=== PATIENT | male | born 1955 | race Caucasian/White ===

== ENCOUNTER 2016-11-02 03:11 | Emergency (ER) | payer MEDICARE ==
[~2016-11-02] VITALS: Ht 177.8 cm; Wt 100.0 kg
[2016-11-02 04:03] LABS: BLOOD UREA NITROGEN 19 mg/dL (7-18)
[2016-11-02 04:07] LABS: ASPARTATE AMINO TRANSFERASE 14 U/L (15-37)
[2016-11-02] MEDS ORDERED: LISINOPRIL (04:39)
[2016-11-02] MEDS ORDERED: ASPI-515 PO (04:40)
[2016-11-02] MEDS ORDERED: LOPERAMIDE 2 MG CAPSULE ONE (05:16)
[2016-11-02 05:29] VITALS: BP 134/71
[2016-11-02] MEDS ORDERED: DIPHENOXYLATE/ATROPINE TABLET PO ONE (05:30)
== END 2016-11-02 06:25 | disposition home or self-care (01) ==
LOC: ED 06:19
DX: R19.7 Diarrhea, unspecified (principal); I10 Essential (primary) hypertension; E78.5 Hyperlipidemia, unspecified; Z99.3 Dependence on wheelchair; Z86.73 Personal history of transient ischemic attack (TIA), and cerebral infarction without residual deficits
CPT/HCPCS: 36415; 74020; 80053; 83690; 85025; 87324; 89055; 99285

== ENCOUNTER 2016-12-08 12:19 | Emergency (ER) | payer OTHER ==
[~2016-12-08] VITALS: Ht 180.3 cm; Wt 100.0 kg
[~2016-12-08 12:19] MED LIST: ASPI-515 PO; LISINOPRIL
[2016-12-08 12:35] VITALS: BP 130/68
[2016-12-08] MEDS ORDERED: LISI-167 PO (12:37)
[2016-12-08] MEDS ORDERED: DIPH1TAB6 PO (12:37)
[2016-12-08] MEDS ORDERED: PLEASE ENTER HEIGHT AND WEIGHT MC SCH (13:00)
[2016-12-08] MEDS ORDERED: SODIUM CHLORIDE FLUSH 10ML SYR IVF ONE (13:00)
[2016-12-08] MEDS ORDERED: SODIUM CHLORIDE 0.9% 1,000ML IVBOLUS ONE (13:00)
[2016-12-08 13:23] LABS: BLOOD UREA NITROGEN 18 mg/dL (7-18)
[2016-12-08 13:27] LABS: ASPARTATE AMINO TRANSFERASE 16 U/L (15-37)
[2016-12-08] MEDS ORDERED: MAGN400T26 PO (14:07)
[2016-12-08] MEDS ORDERED: WARF5TAB7 PO (14:07)
[2016-12-08] MEDS ORDERED: LEVO125T5 PO (14:07)
[2016-12-08] MEDS ORDERED: WARF2.5T73 PO (14:07)
[2016-12-08] MEDS ORDERED: OMEP-110 PO (14:07)
[2016-12-08] MEDS ORDERED: METO25TA35 PO (14:07)
[2016-12-08] MEDS ORDERED: SPIR25TA3 PO (14:07)
[2016-12-08] MEDS ORDERED: PRAV20TA2 PO (14:07)
[2016-12-08] MEDS ORDERED: CIPROFLOXACIN 500 MG TABLET PO ONE (14:30)
[2016-12-08] MEDS ORDERED: metroNIDAZOLE 500 MG TABLET PO ONE (14:30)
[2016-12-08] MEDS ORDERED: metroNIDAZOLE 500 MG TABLET ONE (14:35)
[2016-12-08] MEDS ORDERED: CIPROFLOXACIN 500 MG TABLET ONE (14:35)
== END 2016-12-08 15:01 | disposition home or self-care (01) ==
LOC: ED 13:00
DX: R19.7 Diarrhea, unspecified (principal); E78.5 Hyperlipidemia, unspecified; I10 Essential (primary) hypertension; Z99.3 Dependence on wheelchair
CPT/HCPCS: 36415; 80053; 83690; 85025; 87046; 87324; 87899; 89055; 96360; 96361; 99285; J7030

== ENCOUNTER 2018-08-10 05:16 | Day surgery (SDC) | payer MEDICARE ==
[~2018-08-10] VITALS: Ht 180.3 cm; Wt 132.1 kg
[~2018-08-10 05:16] MED LIST changes: +DIPH1TAB6 PO; +LEVO125T5 PO; +LISI-167 PO; +MAGN400T26 PO; +METO25TA35 PO; +OMEP-110 PO; +PRAV20TA2 PO; +SPIR25TA5 PO; +WARF-36 PO; +WARF2.5T32 PO
[2018-08-10] MEDS ORDERED: LACTATED RINGERS 1,000 ML IV SCH (06:02)
[2018-08-10] MEDS ORDERED: BUPIVACAINE/PF 0.5% ONE (06:08)
[2018-08-10] MEDS ORDERED: LIDOCAINE 1%, 20ML ONE (06:08)
[2018-08-10] MEDS ORDERED: FENTANYL PF 250 MCG/5ML ONE (06:39)
[2018-08-10] MEDS ORDERED: MIDAZOLAM 1 MG/ML, 2ML ONE (06:39)
[2018-08-10] MEDS ORDERED: GLIP10TA13 PO (06:42)
[2018-08-10] MEDS ORDERED: LEVE500T53 PO (06:42)
[2018-08-10] MEDS ORDERED: TAMS-11 PO (06:42)
[2018-08-10] MEDS ORDERED: ATOR20TA37 PO (06:42)
[2018-08-10] MEDS ORDERED: DOXY100T10 PO (06:42)
[2018-08-10] MEDS ORDERED: CLOP75TA52 PO (06:42)
[2018-08-10] MEDS ORDERED: ATEN25TA PO (06:42)
[2018-08-10] MEDS ORDERED: LISI-170 PO (06:42)
[2018-08-10 06:49] VITALS: BP 128/63
[2018-08-10 06:51] LABS: ALANINE AMINOTRANSFERASE 20 U/L (12-78); ALBUMIN 3.2 g/dL (3.4-5.0); ANION GAP 8 mmol/L (5-15); CALCIUM 8.6 mg/dL (8.5-10.1); CHLORIDE 112 mmol/L (98-107); CREATININE 0.97 mg/dL (0.7-1.3)
[2018-08-10 06:54] LABS: ALKALINE PHOSPHATASE 101 U/L (45-117); BILIRUBIN,TOTAL 0.4 mg/dL (0.2-1.0)
[2018-08-10] MEDS ORDERED: PROPOFOL 10 MG/ML, 20ML ONE (07:09)
[2018-08-10] MEDS ORDERED: CEFAZOLIN 1,000 MG ONE (07:09)
== END 2018-08-10 09:05 | disposition home or self-care (01) ==
LOC: OUT 05:16
PROVIDERS: ATTEND Orthopaedic Surgery
DX: Z47.2 Encounter for removal of internal fixation device (principal); Z86.73 Personal history of transient ischemic attack (TIA), and cerebral infarction without residual deficits; I10 Essential (primary) hypertension; Z79.899 Other long term (current) drug therapy
CPT/HCPCS: 20680; 76000; 80053; 82962; 93005; J0690; J2250; J2704; J3010; J3490; J7120

== ENCOUNTER 2019-05-01 08:12 | Inpatient (IN) | payer MEDICARE ==
[~2019-05-01] VITALS: Ht 177.8 cm; Wt 127.0 kg
[~2019-05-01 08:12] MED LIST changes: +ATEN25TA PO; +ATOR20TA37 PO; +CLOP75TA52 PO; +DOXY100T23 PO; +GLIP10TA13 PO; +LEVE500T53 PO; +LISI-170 PO; +TAMS-11 PO
--- NOTE | 2019-05-01 08:25 | NUR ---
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 [place] [id number]. SPOKE WITH GOLDEN THE FORM STRIPPER AT [facility]. GOLDEN VERIFIED THAT THE PT THEY SENT IN [facility] : 59 DAUGHTER IS SERGO DAT PH [phone]
--- NOTE | 2019-05-01 08:32 | NUR ---
BIB [facility] FOR POSSIBLE SEIZURE, FOUND DOWN BY NEIGHBOR, PT NOT RESPONSIVE AND CANNOT STATE NAME OR BIRTHDAY BUT SAYS YES/NO/I DONT KNOW. WINTER EQUALLY, LETHARGIC BUT AROUSABLE. PERRL. [facility] 14. MD AT BEDSIDE FOR EVALUATION. PT PLACED ON MONITOR, PT HAD 1X EPISODE OF VOMITING, PT PLACED SIDE LYING.
[2019-05-01 08:57] LABS: BASOPHILS # (AUTO) 0.01 x10^3/uL (0-0.1); BASOPHILS % (AUTO) 0 % (0-1); EOSINOPHILS # (AUTO) 0.06 x10^3/uL (0-0.4); EOSINOPHILS % (AUTO) 1 % (1-7); LYMPHOCYTES # (AUTO) 1.01 x10^3/uL (1-3.4); LYMPHOCYTES % (AUTO) 9 % (22-44); MD NO; MEAN CORPUSCULAR HEMOGLOBIN 29.9 pg (27.5-34.5); MEAN CORPUSCULAR VOLUME 90.6 fL (81-97); MEAN PLATELET VOLUME 8.5 fL (7.4-10.4); MONOCYTES # (AUTO) 0.79 x10^3/uL (0.2-0.8); MONOCYTES % (AUTO) 7 % (2-9); NEUTROPHILS # (AUTO) 8.92 x10^3/uL (1.8-6.8); NEUTROPHILS % (AUTO) 83 % (42-75); PLATELET COUNT 274 x10^3/uL (130-400); RED BLOOD COUNT 4.34 x10^6/uL (4.38-5.82); RED CELL DISTRIBUTION WIDTH 13.9 % (9.4-14.8)
[2019-05-01] MEDS ORDERED: SODIUM CHLORIDE FLUSH 10ML SYR IVF ONE (09:00)
[2019-05-01 09:08] LABS: ALANINE AMINOTRANSFERASE 30 U/L (12-78); ALBUMIN 3.3 g/dL (3.4-5.0); ANION GAP 7 mmol/L (5-15); CALCIUM 8.7 mg/dL (8.5-10.1); CHLORIDE 105 mmol/L (98-107); CREATININE 1.02 mg/dL (0.7-1.3)
[2019-05-01 09:10] LABS: ALKALINE PHOSPHATASE 112 U/L (45-117); BILIRUBIN,TOTAL 0.5 mg/dL (0.2-1.0); TOTAL PROTEIN 7.7 g/dL (6.4-8.2)
--- NOTE | 2019-05-01 09:14 | NUR ---
PT TO CT
--- NOTE | 2019-05-01 09:50 | NUR ---
PT COMBATIVE AND HITTING RN WHEN ATTEMPTING TO START IV OR ASSIST WITH URINAL. PT BECOMING MORE AROUSABLE AND ALERT BUT STILL NOT ABLE TO ANSWER MANY QUESITONS. MD NOTIFIED. WILL AWAIT LAB AND CT RESULTS. NO NEED FOR IV OR STRAIGHT CATH FOR URINE AT THIS TIME.
[2019-05-01] MEDS ORDERED: LEVETIRACETAM 1,000 MG in SODIUM CHLORIDE 0.9% 100 ML IV ONE (10:30)
[2019-05-01] MEDS ORDERED: ONDANSETRON ODT 4 MG PO PRN (11:00)
[2019-05-01] MEDS ORDERED: ONDANSETRON 2MG/ML, 2ML IVPush PRN (11:00)
[2019-05-01] MEDS ORDERED: ACETAMINOPHEN 325 MG TABLET PO PRN (11:00)
--- NOTE | 2019-05-01 11:10 | NUR ---
IV ESTABLISHED AFTER 4X ATTEMPTS WITH TWO TECHS TO HOLD PTS ARM TO STEADY PT KEEPS JERKING AWAY. PT MEDICATED PER MAR
[2019-05-01] MEDS: SODIUM CHLORIDE 0.9% 1,000 ML IV SCH (11:37)
--- NOTE | 2019-05-01 11:57 | NUR ---
PT TO MRI
--- NOTE | 2019-05-01 12:22 | NUR ---
REPORT TO CHRISTIANA NOVA
--- NOTE | 2019-05-01 13:25 | NUR ---
EEG CALLED WONDERING WHEN PT WILL BE IN ROOM, THEY DO NOT WANT TO START EEG IN ED. INFORMED PT WILL LEAVE SOON POSSIBLE.
[2019-05-01 13:53] VITALS: BP 131/70
[2019-05-01] MEDS ORDERED: BRIV50TA PO (14:26)
[2019-05-01] MEDS: ENOXAPARIN 40 MG/0.4 ML SQ SCH ×2 (15:59→16:03)
[2019-05-01] MEDS: INSULIN LISPRO 100 UNITS/ML, PEN SQ-INSULIN SCH ×2 (16:03→20:59)
[2019-05-01] MEDS ORDERED: LEVETIRACETAM 500 MG TABLET PO SCH (21:00)
[2019-05-01 21:11] VITALS: BP 109/68
[2019-05-01] MEDS: ATORVASTATIN 80 MG TABLET PO SCH (21:45)
[2019-05-01] MEDS: LEVETIRACETAM 500 MG in SODIUM CHLORIDE 0.9% 100 ML IV SCH (22:53)
[2019-05-02] MEDS: SODIUM CHLORIDE 0.9% 1,000 ML IV SCH ×3 (00:48→23:42)
[2019-05-02 02:53] VITALS: BP 146/81
[2019-05-02 03:06] LABS: MICROSCOPIC AUTO
[2019-05-02 03:11] LABS: CULTURE INDICATED? YES
[2019-05-02 03:17] LABS: AMPHETAMINE SCREEN, URINE Negative (Negative); BARBITURATE SCREEN, URINE Negative (Negative); BENZODIAZEPINE SCREEN, URINE Negative (Negative); CANNABINOID SCREEN, URINE Negative (Negative); COCAINE SCREEN, URINE Negative (Negative); METHADONE SCREEN, URINE Negative (Negative); OPIATE SCREEN, URINE Negative (Negative)
[2019-05-02 06:02] LABS: BASOPHILS # (AUTO) 0.05 x10^3/uL (0-0.1); BASOPHILS % (AUTO) 1 % (0-1); EOSINOPHILS # (AUTO) 0.26 x10^3/uL (0-0.4); EOSINOPHILS % (AUTO) 3 % (1-7); LYMPHOCYTES # (AUTO) 1.68 x10^3/uL (1-3.4); LYMPHOCYTES % (AUTO) 21 % (22-44); MD NO; MEAN CORPUSCULAR HEMOGLOBIN 30.1 pg (27.5-34.5); MEAN CORPUSCULAR HGB CONC 32.3 g/dL (33.2-36.2); MEAN CORPUSCULAR VOLUME 93.3 fL (81-97); MEAN PLATELET VOLUME 9.3 fL (7.4-10.4); MONOCYTES # (AUTO) 0.68 x10^3/uL (0.2-0.8); MONOCYTES % (AUTO) 8 % (2-9); NEUTROPHILS # (AUTO) 5.43 x10^3/uL (1.8-6.8); NEUTROPHILS % (AUTO) 67 % (42-75); PLATELET COUNT 231 x10^3/uL (130-400); RED BLOOD COUNT 4.35 x10^6/uL (4.38-5.82); RED CELL DISTRIBUTION WIDTH 14.3 % (9.4-14.8)
[2019-05-02 06:13] LABS: CHLORIDE 111 mmol/L (98-107)
[2019-05-02 06:27] LABS: ALANINE AMINOTRANSFERASE 26 U/L (12-78); ALKALINE PHOSPHATASE 104 U/L (45-117); ANION GAP 8 mmol/L (5-15); BILIRUBIN,TOTAL 0.7 mg/dL (0.2-1.0); CALCIUM 8.8 mg/dL (8.5-10.1); CHOL/HDL RATIO 3.4; CHOLESTEROL, TOTAL 141 mg/dL (140-239); HDL CHOL % 30 % (26-37); HDL CHOLESTEROL (DIRECT) 42 mg/dL (40-60); LDL CHOLESTEROL,CALCULATED 77 mg/dL (54-169); LDL/HDL RATIO 1.8 (0.5-3.0); TOTAL PROTEIN 7.1 g/dL (6.4-8.2); TRIGLYCERIDES 111 mg/dL (50-200); VLDL CHOLESTEROL 22 mg/dL (0-25)
[2019-05-02] MEDS: CLOPIDOGREL 75 MG TABLET PO SCH (09:00)
[2019-05-02] MEDS: INSULIN LISPRO 100 UNITS/ML, PEN SQ-INSULIN SCH ×4 (09:41→20:49)
[2019-05-02] MEDS: LEVETIRACETAM 500 MG in SODIUM CHLORIDE 0.9% 100 ML IV SCH ×2 (10:01→20:55)
[2019-05-02] MEDS: ENOXAPARIN 40 MG/0.4 ML SQ SCH (11:00)
[2019-05-02 11:35] LABS: HCT (SEDRATE) 39.1 % (39.2-51.8)
[2019-05-02 13:38] VITALS: BP 126/65
[2019-05-02 19:21] VITALS: BP 127/84
[2019-05-02] MEDS: ATORVASTATIN 80 MG TABLET PO SCH (20:57)
[2019-05-02] MEDS: CEFTRIAXONE PMX 2GM/50ML 50 ML IV SCH (21:21)
[2019-05-03 01:44] VITALS: BP 151/80
[2019-05-03 06:11] LABS: BASOPHILS # (AUTO) 0.02 x10^3/uL (0-0.1); BASOPHILS % (AUTO) 0 % (0-1); EOSINOPHILS # (AUTO) 0.32 x10^3/uL (0-0.4); EOSINOPHILS % (AUTO) 3 % (1-7); LYMPHOCYTES # (AUTO) 1.25 x10^3/uL (1-3.4); LYMPHOCYTES % (AUTO) 13 % (22-44); MD NO; MEAN CORPUSCULAR HEMOGLOBIN 30.2 pg (27.5-34.5); MEAN CORPUSCULAR HGB CONC 32.5 g/dL (33.2-36.2); MEAN CORPUSCULAR VOLUME 92.9 fL (81-97); MEAN PLATELET VOLUME 8.9 fL (7.4-10.4); MONOCYTES # (AUTO) 0.75 x10^3/uL (0.2-0.8); MONOCYTES % (AUTO) 8 % (2-9); NEUTROPHILS # (AUTO) 7.15 x10^3/uL (1.8-6.8); NEUTROPHILS % (AUTO) 75 % (42-75); PLATELET COUNT 268 x10^3/uL (130-400); RED BLOOD COUNT 4.41 x10^6/uL (4.38-5.82); RED CELL DISTRIBUTION WIDTH 13.9 % (9.4-14.8)
[2019-05-03 06:20] LABS: ANION GAP 10 mmol/L (5-15); CALCIUM 8.1 mg/dL (8.5-10.1); CHLORIDE 110 mmol/L (98-107); CREATININE 0.82 mg/dL (0.7-1.3)
[2019-05-03 06:38] VITALS: BP 155/78
[2019-05-03] MEDS: INSULIN LISPRO 100 UNITS/ML, PEN SQ-INSULIN SCH ×4 (07:00→19:56)
[2019-05-03 09:40] VITALS: BP 148/80
[2019-05-03] MEDS: LISINOPRIL 20 MG TABLET PO SCH (09:42)
[2019-05-03] MEDS: TAMSULOSIN 0.4 MG CAP.ER.24H PO SCH (09:42)
[2019-05-03] MEDS: LEVETIRACETAM 500 MG in SODIUM CHLORIDE 0.9% 100 ML IV SCH ×2 (09:42→20:31)
[2019-05-03] MEDS: ATENOLOL 25 MG TABLET PO SCH (09:42)
[2019-05-03] MEDS: CLOPIDOGREL 75 MG TABLET PO SCH (09:42)
[2019-05-03] MEDS: SODIUM CHLORIDE 0.9% 1,000 ML IV SCH (09:43)
[2019-05-03] MEDS: ENOXAPARIN 40 MG/0.4 ML SQ SCH (12:35)
[2019-05-03 14:26] VITALS: BP 129/62
[2019-05-03 19:30] VITALS: BP 131/74
[2019-05-03] MEDS: ATORVASTATIN 80 MG TABLET PO SCH (21:00)
[2019-05-03] MEDS: CEFTRIAXONE PMX 2GM/50ML 50 ML IV SCH (21:30)
[2019-05-04 00:29] VITALS: BP 162/77
[2019-05-04] MEDS: INSULIN LISPRO 100 UNITS/ML, PEN SQ-INSULIN SCH ×4 (07:00→19:40)
[2019-05-04 07:31] VITALS: BP 164/80
[2019-05-04 09:30] VITALS: BP 123/64
[2019-05-04] MEDS: LISINOPRIL 20 MG TABLET PO SCH (09:49)
[2019-05-04] MEDS: ATENOLOL 25 MG TABLET PO SCH (09:49)
[2019-05-04] MEDS: CLOPIDOGREL 75 MG TABLET PO SCH (09:49)
[2019-05-04] MEDS: LEVETIRACETAM 500 MG in SODIUM CHLORIDE 0.9% 100 ML IV SCH ×2 (09:50→19:38)
[2019-05-04] MEDS: TAMSULOSIN 0.4 MG CAP.ER.24H PO SCH (09:50)
[2019-05-04] MEDS: ENOXAPARIN 40 MG/0.4 ML SQ SCH (12:30)
[2019-05-04 12:38] VITALS: BP 119/57
[2019-05-04] MEDS: AMPICILLIN 500 MG in SODIUM CHLORIDE 0.9% 100 ML IV SCH ×2 (16:38→23:01)
[2019-05-04] MEDS: ATORVASTATIN 80 MG TABLET PO SCH (19:38)
[2019-05-04 20:59] VITALS: BP 153/75
[2019-05-05 01:00] VITALS: BP 152/82
[2019-05-05] MEDS: AMPICILLIN 500 MG in SODIUM CHLORIDE 0.9% 100 ML IV SCH ×3 (04:30→22:30)
[2019-05-05] MEDS: INSULIN LISPRO 100 UNITS/ML, PEN SQ-INSULIN SCH ×4 (07:00→21:00)
[2019-05-05 07:22] VITALS: BP 147/69
[2019-05-05] MEDS: TAMSULOSIN 0.4 MG CAP.ER.24H PO SCH (09:44)
[2019-05-05] MEDS: LEVETIRACETAM 500 MG in SODIUM CHLORIDE 0.9% 100 ML IV SCH ×2 (09:44→21:00)
[2019-05-05] MEDS: LISINOPRIL 20 MG TABLET PO SCH (09:44)
[2019-05-05] MEDS: CLOPIDOGREL 75 MG TABLET PO SCH (09:44)
[2019-05-05] MEDS: ATENOLOL 25 MG TABLET PO SCH (09:44)
[2019-05-05] MEDS: ENOXAPARIN 40 MG/0.4 ML SQ SCH (11:57)
[2019-05-05] MEDS ORDERED: HALOPERIDOL 5 MG/ML ONE (16:40)
[2019-05-05] MEDS ORDERED: HALOPERIDOL 5 MG/ML IM PRN (17:00)
[2019-05-05 20:24] VITALS: BP 124/74
[2019-05-05] MEDS: ATORVASTATIN 80 MG TABLET PO SCH (21:00)
[2019-05-06 01:10] VITALS: BP_SYST 115; BP_SYST 136; BP_DIAS 69; BP_DIAS 75
[2019-05-06] MEDS: AMPICILLIN 500 MG in SODIUM CHLORIDE 0.9% 100 ML IV SCH (04:30)
[2019-05-06 06:10] LABS: BASOPHILS # (AUTO) 0.05 x10^3/uL (0-0.1); BASOPHILS % (AUTO) 1 % (0-1); EOSINOPHILS # (AUTO) 0.43 x10^3/uL (0-0.4); EOSINOPHILS % (AUTO) 6 % (1-7); LYMPHOCYTES # (AUTO) 1.66 x10^3/uL (1-3.4); LYMPHOCYTES % (AUTO) 24 % (22-44); MD NO; MEAN CORPUSCULAR HGB CONC 32.5 g/dL (33.2-36.2); MEAN CORPUSCULAR VOLUME 92.4 fL (81-97); MEAN PLATELET VOLUME 8.8 fL (7.4-10.4); MONOCYTES # (AUTO) 0.67 x10^3/uL (0.2-0.8); MONOCYTES % (AUTO) 10 % (2-9); NEUTROPHILS # (AUTO) 4.25 x10^3/uL (1.8-6.8); NEUTROPHILS % (AUTO) 60 % (42-75); PLATELET COUNT 271 x10^3/uL (130-400); RED BLOOD COUNT 4.63 x10^6/uL (4.38-5.82); RED CELL DISTRIBUTION WIDTH 13.6 % (9.4-14.8)
[2019-05-06 06:19] LABS: ALBUMIN 2.9 g/dL (3.4-5.0); ANION GAP 7 mmol/L (5-15); CALCIUM 8.6 mg/dL (8.5-10.1); CHLORIDE 108 mmol/L (98-107)
[2019-05-06 06:20] VITALS: BP 145/72
[2019-05-06 06:24] LABS: ALANINE AMINOTRANSFERASE 25 U/L (12-78); ALKALINE PHOSPHATASE 120 U/L (45-117); BILIRUBIN,TOTAL 0.5 mg/dL (0.2-1.0); CREATININE 0.86 mg/dL (0.7-1.3); TOTAL PROTEIN 7.2 g/dL (6.4-8.2)
[2019-05-06] MEDS: INSULIN LISPRO 100 UNITS/ML, PEN SQ-INSULIN SCH ×4 (07:00→20:59)
[2019-05-06] MEDS: TAMSULOSIN 0.4 MG CAP.ER.24H PO SCH (08:49)
[2019-05-06] MEDS: CLOPIDOGREL 75 MG TABLET PO SCH (08:50)
[2019-05-06] MEDS: LISINOPRIL 20 MG TABLET PO SCH (08:51)
[2019-05-06] MEDS: ATENOLOL 25 MG TABLET PO SCH (08:51)
[2019-05-06] MEDS: ENOXAPARIN 30 MG/0.3 ML SQ SCH ×2 (08:52→21:00)
[2019-05-06] MEDS: LACTOBACILLUS CHEW TABLET PO SCH ×3 (09:00→21:00)
[2019-05-06] MEDS: AMOXICILLIN 500 MG CAPSULE PO SCH ×2 (10:02→21:28)
[2019-05-06] MEDS: LEVETIRACETAM 500 MG TABLET PO SCH ×2 (10:02→21:28)
[2019-05-06 12:12] VITALS: BP 134/72
[2019-05-06 20:47] VITALS: BP 132/68
[2019-05-06] MEDS: ATORVASTATIN 80 MG TABLET PO SCH (21:00)
[2019-05-07 00:58] VITALS: BP 148/70
[2019-05-07 06:27] VITALS: BP 153/76
[2019-05-07] MEDS: INSULIN LISPRO 100 UNITS/ML, PEN SQ-INSULIN SCH ×3 (07:00→16:00)
[2019-05-07] MEDS: TAMSULOSIN 0.4 MG CAP.ER.24H PO SCH (08:09)
[2019-05-07] MEDS: LACTOBACILLUS CHEW TABLET PO SCH ×2 (08:09→16:00)
[2019-05-07] MEDS: ENOXAPARIN 30 MG/0.3 ML SQ SCH (08:09)
[2019-05-07] MEDS: CLOPIDOGREL 75 MG TABLET PO SCH (08:22)
[2019-05-07] MEDS: AMOXICILLIN 500 MG CAPSULE PO SCH (08:22)
[2019-05-07] MEDS: ATENOLOL 25 MG TABLET PO SCH (08:23)
[2019-05-07] MEDS: LEVETIRACETAM 500 MG TABLET PO SCH (08:23)
[2019-05-07] MEDS: LISINOPRIL 20 MG TABLET PO SCH (08:23)
[2019-05-07 12:36] VITALS: BP 128/69
[2019-05-07] MEDS ORDERED: ACID1TAB7 PO (17:12)
[2019-05-07] MEDS ORDERED: AMOX-291 PO (17:12)
[2019-05-07] MEDS ORDERED: ATOR-2 PO (17:12)
[2019-05-07] MEDS ORDERED: LEVE500T53 PO (17:12)
== END 2019-05-07 17:30 | DRG 64 ==
LOC: EDBD → MERGE 08:12 → ED 10:48 → EDIP 10:49 → ED 10:59 → OBSVTOIN 11:16 → 4EST 13:34
PROVIDERS: ADMIT Internal Medicine; ATTEND Internal Medicine
DX: I63.9 Cerebral infarction, unspecified (principal); G93.41 Metabolic encephalopathy; E87.1 Hypo-osmolality and hyponatremia; N39.0 Urinary tract infection, site not specified; G40.909 Epilepsy, unspecified, not intractable, without status epilepticus; B95.2 Enterococcus as the cause of diseases classified elsewhere; E11.649 Type 2 diabetes mellitus with hypoglycemia without coma; E78.5 Hyperlipidemia, unspecified; I11.9 Hypertensive heart disease without heart failure; N40.0 Benign prostatic hyperplasia without lower urinary tract symptoms; R32 Unspecified urinary incontinence; Z79.02 Long term (current) use of antithrombotics/antiplatelets; Z79.899 Other long term (current) drug therapy; Z86.73 Personal history of transient ischemic attack (TIA), and cerebral infarction without residual deficits; Z91.19 Patient's noncompliance with other medical treatment and regimen; Z99.3 Dependence on wheelchair
CPT/HCPCS: 36415; 70450; 70551; 71045; 80048; 80053; 80061; 80177; 80307; 81001; 82962; 83036; 83735; 84100; 84443; 85025; 85651; 87086; 87186; 93005; 93306; 93880; 95819; 96365; 96366; G0378; J0696; J1650; J1953; J0290; J1630; J7030

== ENCOUNTER 2019-07-19 09:02 | Inpatient (IN) | payer MEDICARE ==
[~2019-07-19] VITALS: Ht 177.8 cm; Wt 124.5 kg
[~2019-07-19 09:02] MED LIST changes: +ACID1TAB7 PO; +AMOX-291 PO; +ATOR-2 PO; +BRIV50TA PO
--- NOTE | 2019-07-19 09:23 | NUR ---
PT PLACED ON ALL ROOM MONITORING. REPORT TO PRIMARY AND ERP. POHeath (DTR) SERGO [phone]
--- NOTE | 2019-07-19 09:24 | NUR ---
requested records from [facility]
[2019-07-19] MEDS ORDERED: ONDANSETRON 2MG/ML, 2ML IVPush ONE (10:00)
[2019-07-19] MEDS ORDERED: FAMOTIDINE 20 MG/2 ML IVPush ONE (10:00)
[2019-07-19 10:18] LABS: BASOPHILS # (AUTO) 0.01 x10^3/uL (0-0.1); BASOPHILS % (AUTO) 0 % (0-1); EOSINOPHILS % (AUTO) 0 % (1-7); LYMPHOCYTES # (AUTO) 0.83 x10^3/uL (1-3.4); LYMPHOCYTES % (AUTO) 7 % (22-44); MD NO; MEAN CORPUSCULAR HEMOGLOBIN 30.5 pg (27.5-34.5); MEAN CORPUSCULAR VOLUME 92.7 fL (81-97); MEAN PLATELET VOLUME 8.7 fL (7.4-10.4); MONOCYTES # (AUTO) 0.72 x10^3/uL (0.2-0.8); MONOCYTES % (AUTO) 6 % (2-9); NEUTROPHILS # (AUTO) 10.82 x10^3/uL (1.8-6.8); NEUTROPHILS % (AUTO) 87 % (42-75); PLATELET COUNT 263 x10^3/uL (130-400); RED BLOOD COUNT 4.31 x10^6/uL (4.38-5.82)
[2019-07-19] MEDS ORDERED: FAMOTIDINE 20 MG/2 ML ONE (10:21)
[2019-07-19] MEDS ORDERED: ONDANSETRON 2MG/ML, 2ML ONE (10:21)
[2019-07-19 10:30] LABS: ALANINE AMINOTRANSFERASE 27 U/L (12-78); ALBUMIN 3.3 g/dL (3.4-5.0); ANION GAP 5 mmol/L (5-15); CALCIUM 8.5 mg/dL (8.5-10.1); CHLORIDE 107 mmol/L (98-107)
[2019-07-19] MEDS ORDERED: SODIUM CHLORIDE FLUSH 10ML SYR IVF ONE (10:30)
[2019-07-19 10:33] LABS: ALKALINE PHOSPHATASE 128 U/L (45-117); BILIRUBIN,TOTAL 0.4 mg/dL (0.2-1.0); CREATININE 1.08 mg/dL (0.7-1.3); TOTAL PROTEIN 7.6 g/dL (6.4-8.2)
--- NOTE | 2019-07-19 10:36 | NUR ---
IV STARTED, LABS DRAWN AND SENT, PT MEDICATED PER JUL. SEIZURE PADS APPLIED TO SIDE RAILS. WHEN ASKED WHERE HE IS, PT REPLIES "HELL". OX1 ONLY. CALL LIGHT IN REACH.
--- NOTE | 2019-07-19 10:57 | NUR ---
PT ABEL HEARD'D FOR URINE SAMPLE WITH 2 PERSON ASSIST. STILL DISORIENTED. ERP NOTIFIED. [facility] CALLED FOR MEDICATION RECORDS. CALL LIGHT IN REACH.
--- NOTE | 2019-07-19 10:59 | NUR ---
ALIA TROTTER NUMBER [phone]
[2019-07-19 11:10] LABS: MICROSCOPIC NOT IND
[2019-07-19 11:20] LABS: AMPHETAMINE SCREEN, URINE Negative (Negative); BARBITURATE SCREEN, URINE Negative (Negative); BENZODIAZEPINE SCREEN, URINE Negative (Negative); CANNABINOID SCREEN, URINE Negative (Negative); COCAINE SCREEN, URINE Negative (Negative); METHADONE SCREEN, URINE Negative (Negative); OPIATE SCREEN, URINE Negative (Negative)
[2019-07-19 11:23] LABS: CULTURE INDICATED? NO
[2019-07-19 11:35] LABS: INTERNATIONAL NORMALIZED RATIO 1.02 (0.93-1.1); PROTHROMBIN TIME 10.8 Seconds (9.6-11.5)
[2019-07-19] MEDS ORDERED: SODIUM CHLORIDE 0.9% 1,000ML IVBOLUS ONE (12:00)
--- NOTE | 2019-07-19 13:04 | NUR ---
dr ramos spoke with dr lynch
[2019-07-19] MEDS ORDERED: LACOSAMIDE 200 MG in SODIUM CHLORIDE 0.9% 100 ML IV ONE (13:30)
[2019-07-19] MEDS ORDERED: ASA/APAP/ CAFFEINE TABLET PO PRN (14:00)
[2019-07-19] MEDS ORDERED: GUAIFENESIN/DM 200-20MG, 10ML UDC PO PRN (14:00)
[2019-07-19] MEDS ORDERED: hydrALAzine 20 MG/ML, 1ML IVPush PRN (14:00)
[2019-07-19] MEDS ORDERED: LABETALOL 5MG/ML, 20ML IVPush PRN (14:00)
[2019-07-19] MEDS ORDERED: ACETAMINOPHEN 325 MG TABLET PO PRN (14:00)
[2019-07-19] MEDS ORDERED: POLYETHYLENE GLYCOL 17 GM PACKET PO PRN (14:00)
[2019-07-19] MEDS ORDERED: ONDANSETRON 2MG/ML, 2ML IVPush PRN (14:00)
[2019-07-19] MEDS ORDERED: TRAZODONE 50MG TABLET PO PRN (14:00)
[2019-07-19] MEDS ORDERED: ONDANSETRON ODT 4 MG PO PRN (14:00)
[2019-07-19] MEDS ORDERED: LACTATED RINGERS 1,000 ML IV ONE (14:00)
[2019-07-19] MEDS ORDERED: BACLOFEN 10 MG TABLET PO PRN (14:00)
[2019-07-19] MEDS ORDERED: DOCUSATE 100 MG CAPSULE PO PRN (14:00)
--- NOTE | 2019-07-19 14:02 | NUR ---
SENT FOR VIMPAT FROM PHARMACY. PT PLACED ON 2L O2 FOR RA SAT OF 86% WHILE SLEEPING. CALL LIGHT IN REACH.
--- NOTE | 2019-07-19 14:28 | NUR ---
ATTEMPTED TO CALL REPORT TWICE. RECEIVING RN UNAVAILABLE AT THIS TIME. WILL RETURN CALL.
[2019-07-19] MEDS ORDERED: VALPROATE SODIUM 100 MG/ML, 5ML IV SCH (14:30)
--- NOTE | 2019-07-19 14:41 | NUR ---
REPORT TO AVTAR GARRETT. PT IN BED, AWAITING TRANSPORT AT THIS TIME.
[2019-07-19] MEDS: ENOXAPARIN 40 MG/0.4 ML SQ SCH (15:28)
[2019-07-19 15:31] VITALS: BP 117/68
[2019-07-19] MEDS: LACTOBACILLUS CHEW TABLET PO SCH ×3 (16:00→21:00)
[2019-07-19] MEDS: VALPROATE SODIUM 500 MG in DEXTROSE 5% 100 ML IV SCH ×2 (16:51→22:14)
[2019-07-19 19:53] VITALS: BP 115/73
[2019-07-19] MEDS: LACOSAMIDE 50 MG TAB PO SCH ×2 (20:24→21:00)
[2019-07-19] MEDS: ATORVASTATIN 80 MG TABLET PO SCH ×2 (20:25→21:00)
[2019-07-20 00:32] VITALS: BP 123/62
[2019-07-20 06:06] LABS: BASOPHILS # (AUTO) 0.03 x10^3/uL (0-0.1); BASOPHILS % (AUTO) 0 % (0-1); EOSINOPHILS # (AUTO) 0.17 x10^3/uL (0-0.4); EOSINOPHILS % (AUTO) 2 % (1-7); LYMPHOCYTES # (AUTO) 1.72 x10^3/uL (1-3.4); LYMPHOCYTES % (AUTO) 19 % (22-44); MD NO; MEAN CORPUSCULAR HEMOGLOBIN 30.8 pg (27.5-34.5); MEAN CORPUSCULAR HGB CONC 33.3 g/dL (33.2-36.2); MEAN CORPUSCULAR VOLUME 92.6 fL (81-97); MEAN PLATELET VOLUME 8.8 fL (7.4-10.4); MONOCYTES # (AUTO) 0.74 x10^3/uL (0.2-0.8); MONOCYTES % (AUTO) 8 % (2-9); NEUTROPHILS # (AUTO) 6.38 x10^3/uL (1.8-6.8); NEUTROPHILS % (AUTO) 71 % (42-75); PLATELET COUNT 240 x10^3/uL (130-400); RED BLOOD COUNT 4.26 x10^6/uL (4.38-5.82); RED CELL DISTRIBUTION WIDTH 13.7 % (9.4-14.8)
[2019-07-20 06:09] LABS: ALANINE AMINOTRANSFERASE 25 U/L (12-78); ALBUMIN 2.9 g/dL (3.4-5.0); ANION GAP 4 mmol/L (5-15); CALCIUM 8.5 mg/dL (8.5-10.1); CHLORIDE 108 mmol/L (98-107); CREATININE 0.88 mg/dL (0.7-1.3)
[2019-07-20 06:11] LABS: ALKALINE PHOSPHATASE 116 U/L (45-117); BILIRUBIN,TOTAL 0.9 mg/dL (0.2-1.0); TOTAL PROTEIN 7.1 g/dL (6.4-8.2)
[2019-07-20 07:09] VITALS: BP 123/64
[2019-07-20] MEDS: VALPROATE SODIUM 500 MG in DEXTROSE 5% 100 ML IV SCH (08:54)
[2019-07-20] MEDS: LACTOBACILLUS CHEW TABLET PO SCH ×3 (08:55→20:38)
[2019-07-20] MEDS: TAMSULOSIN 0.4 MG CAP.ER.24H PO SCH (08:55)
[2019-07-20] MEDS: LISINOPRIL 20 MG TABLET PO SCH (08:55)
[2019-07-20] MEDS: LACOSAMIDE 50 MG TAB PO SCH (08:56)
[2019-07-20] MEDS: ATENOLOL 25 MG TABLET PO SCH (08:56)
[2019-07-20] MEDS: CLOPIDOGREL 75 MG TABLET PO SCH (08:56)
[2019-07-20 12:59] VITALS: BP 122/75
[2019-07-20] MEDS: ENOXAPARIN 40 MG/0.4 ML SQ SCH (15:26)
[2019-07-20 20:05] VITALS: BP 110/73
[2019-07-20] MEDS: VALPROIC ACID 250 MG CAPSULE PO SCH (20:38)
[2019-07-20] MEDS: APIXABAN 5 MG TABLET PO SCH (20:39)
[2019-07-20] MEDS: ATORVASTATIN 80 MG TABLET PO SCH (20:39)
[2019-07-21 01:14] VITALS: BP 124/80
[2019-07-21 05:48] LABS: BASOPHILS # (AUTO) 0.02 x10^3/uL (0-0.1); BASOPHILS % (AUTO) 0 % (0-1); EOSINOPHILS # (AUTO) 0.25 x10^3/uL (0-0.4); EOSINOPHILS % (AUTO) 3 % (1-7); LYMPHOCYTES # (AUTO) 1.62 x10^3/uL (1-3.4); LYMPHOCYTES % (AUTO) 19 % (22-44); MD NO; MEAN CORPUSCULAR HEMOGLOBIN 30.4 pg (27.5-34.5); MEAN CORPUSCULAR HGB CONC 32.9 g/dL (33.2-36.2); MEAN CORPUSCULAR VOLUME 92.4 fL (81-97); MEAN PLATELET VOLUME 8.7 fL (7.4-10.4); MONOCYTES # (AUTO) 0.75 x10^3/uL (0.2-0.8); MONOCYTES % (AUTO) 9 % (2-9); NEUTROPHILS # (AUTO) 5.72 x10^3/uL (1.8-6.8); NEUTROPHILS % (AUTO) 68 % (42-75); PLATELET COUNT 225 x10^3/uL (130-400); RED BLOOD COUNT 3.94 x10^6/uL (4.38-5.82); RED CELL DISTRIBUTION WIDTH 13.6 % (9.4-14.8)
[2019-07-21 05:58] LABS: ANION GAP 5 mmol/L (5-15); CALCIUM 8.2 mg/dL (8.5-10.1); CHLORIDE 109 mmol/L (98-107)
[2019-07-21 07:26] VITALS: BP 124/73
[2019-07-21] MEDS: VALPROIC ACID 250 MG CAPSULE PO SCH ×2 (08:42→21:24)
[2019-07-21] MEDS: TAMSULOSIN 0.4 MG CAP.ER.24H PO SCH (08:42)
[2019-07-21] MEDS: APIXABAN 5 MG TABLET PO SCH ×2 (08:42→21:24)
[2019-07-21] MEDS: LACTOBACILLUS CHEW TABLET PO SCH ×3 (08:42→21:25)
[2019-07-21] MEDS: ATENOLOL 25 MG TABLET PO SCH (08:42)
[2019-07-21] MEDS: CLOPIDOGREL 75 MG TABLET PO SCH (08:42)
[2019-07-21] MEDS: LISINOPRIL 20 MG TABLET PO SCH (08:43)
[2019-07-21 13:50] VITALS: BP 118/54
[2019-07-21] MEDS: ENOXAPARIN 40 MG/0.4 ML SQ SCH (15:26)
[2019-07-21 21:21] VITALS: BP 100/70
[2019-07-21] MEDS: ATORVASTATIN 80 MG TABLET PO SCH (21:25)
[2019-07-22 02:44] VITALS: BP 131/71
[2019-07-22 05:28] LABS: BASOPHILS # (AUTO) 0.04 x10^3/uL (0-0.1); BASOPHILS % (AUTO) 1 % (0-1); EOSINOPHILS # (AUTO) 0.27 x10^3/uL (0-0.4); EOSINOPHILS % (AUTO) 3 % (1-7); LYMPHOCYTES # (AUTO) 1.32 x10^3/uL (1-3.4); LYMPHOCYTES % (AUTO) 16 % (22-44); MD NO; MEAN CORPUSCULAR HEMOGLOBIN 30.3 pg (27.5-34.5); MEAN CORPUSCULAR HGB CONC 32.9 g/dL (33.2-36.2); MEAN CORPUSCULAR VOLUME 92.2 fL (81-97); MEAN PLATELET VOLUME 8.9 fL (7.4-10.4); MONOCYTES # (AUTO) 0.76 x10^3/uL (0.2-0.8); MONOCYTES % (AUTO) 9 % (2-9); NEUTROPHILS # (AUTO) 5.79 x10^3/uL (1.8-6.8); NEUTROPHILS % (AUTO) 71 % (42-75); PLATELET COUNT 236 x10^3/uL (130-400); RED BLOOD COUNT 4.39 x10^6/uL (4.38-5.82); RED CELL DISTRIBUTION WIDTH 14.1 % (9.4-14.8)
[2019-07-22 05:40] LABS: ANION GAP 6 mmol/L (5-15); CALCIUM 8.6 mg/dL (8.5-10.1); CHLORIDE 108 mmol/L (98-107)
[2019-07-22 05:43] LABS: CREATININE 0.81 mg/dL (0.7-1.3)
[2019-07-22 08:11] VITALS: BP 145/89
[2019-07-22] MEDS: LISINOPRIL 20 MG TABLET PO SCH (09:14)
[2019-07-22] MEDS: VALPROIC ACID 250 MG CAPSULE PO SCH (09:14)
[2019-07-22] MEDS: CLOPIDOGREL 75 MG TABLET PO SCH (09:14)
[2019-07-22] MEDS: LACTOBACILLUS CHEW TABLET PO SCH (09:14)
[2019-07-22] MEDS: TAMSULOSIN 0.4 MG CAP.ER.24H PO SCH (09:14)
[2019-07-22] MEDS: ATENOLOL 25 MG TABLET PO SCH (09:15)
[2019-07-22] MEDS: APIXABAN 5 MG TABLET PO SCH (09:15)
[2019-07-22] MEDS ORDERED: VALP250C59 PO ×2 (12:12)
[2019-07-22] MEDS ORDERED: APIX5TAB PO (12:12)
[2019-07-22 15:05] VITALS: BP 143/78
== END 2019-07-22 16:00 | DRG 101 ==
LOC: ED 11:24 → EDIP 12:56 → 4EST 15:08
PROVIDERS: ADMIT Emergency Medicine; ATTEND Hospitalist
DX: G40.909 Epilepsy, unspecified, not intractable, without status epilepticus (principal); E46 Unspecified protein-calorie malnutrition; E87.2 Acidosis; I69.351 Hemiplegia and hemiparesis following cerebral infarction affecting right dominant side; I82.411 Acute embolism and thrombosis of right femoral vein; E11.65 Type 2 diabetes mellitus with hyperglycemia; E78.5 Hyperlipidemia, unspecified; E66.9 Obesity, unspecified; G93.89 Other specified disorders of brain; I10 Essential (primary) hypertension; Z79.899 Other long term (current) drug therapy; Z99.3 Dependence on wheelchair; Z68.39 Body mass index [BMI] 39.0-39.9, adult
CPT/HCPCS: 36415; 70450; 71045; 80048; 80053; 80164; 80307; 81003; 83605; 83735; 84100; 85025; 85610; 93005; 96361; 96374; 96375; 99285; G0378; J1650; J2405; J3490; J7030; J7120

== ENCOUNTER 2019-11-27 08:11 | Emergency (ER) | payer MEDICARE ==
[~2019-11-27] VITALS: Ht 180.3 cm; Wt 110.0 kg
[~2019-11-27 08:11] MED LIST changes: +APIX5TAB PO; +VALP250C59 PO
[2019-11-27 08:19] VITALS: BP 118/78
[2019-11-27] MEDS ORDERED: PLEASE ENTER HEIGHT AND WEIGHT MC SCH (08:30)
[2019-11-27] MEDS ORDERED: DIPH,PERTUSS(ACELL),TET VAC/PF 0.5 ML IM-VACC ONE ×2 (08:30→08:31)
[2019-11-27] MEDS ORDERED: MICROFIBRILLAR COLLAGEN 1 GM TP ONE (09:18)
[2019-11-27] MEDS ORDERED: MICROFIBRILLAR COLLAGEN 0.5GM/PACK TP ONE (09:30)
--- NOTE | 2019-11-27 09:49 | NUR ---
BREAKFAST SERVED TO PATIENT.
--- NOTE | 2019-11-27 10:06 | NUR ---
TASK RN: PT RESTING ON GURNEY. VILLEDA
--- NOTE | 2019-11-27 11:24 | NUR ---
Patient given discharge instructions and they have confirmed that they understand the instructions. Patient transported by [facility] staff in a wheel chair back to [facility]. New cane given to patient for safety at home.
== END 2019-11-27 11:25 | disposition home or self-care (01) ==
LOC: ED 08:33
DX: S91.211A Laceration without foreign body of right great toe with damage to nail, initial encounter (principal); W22.8XXA Striking against or struck by other objects, initial encounter; Y93.89 Activity, other specified; Y92.098 Other place in other non-institutional residence as the place of occurrence of the external cause; Y99.8 Other external cause status
CPT/HCPCS: 90471; 90715; 99283

== ENCOUNTER 2019-11-28 07:52 | Emergency (ER) | payer MEDICARE ==
[~2019-11-28] VITALS: Ht 182.9 cm; Wt 118.0 kg
--- NOTE | 2019-11-28 08:09 | NUR ---
TASK RN. PT ELIZABETH HARO FROM HOME. PT LIVES AT [facility] ([id number] PT STATES HIS RT LARGE TOE TOE NAIL FELL OFF YESTERDAY. PT ON XARALTO FOR HX DVT, SMALL AMOUNT OF BLEEDING NOTED, MOSTLY CONTROLLED. ER EMY AT BEDSIDE FOR ASSESSMENT.
[2019-11-28] MEDS ORDERED: MICROFIBRILLAR COLLAGEN 1 GM TP ONE ×2 (08:30→08:33)
[2019-11-28 08:41] VITALS: BP 106/53
[2019-11-28 09:01] LABS: BASOPHILS # (AUTO) 0.03 x10^3/uL (0-0.1); BASOPHILS % (AUTO) 0 % (0-1); EOSINOPHILS # (AUTO) 0.07 x10^3/uL (0-0.4); EOSINOPHILS % (AUTO) 1 % (1-7); LYMPHOCYTES # (AUTO) 1.24 x10^3/uL (1-3.4); LYMPHOCYTES % (AUTO) 13 % (22-44); MD NO; MEAN CORPUSCULAR HEMOGLOBIN 30.7 pg (27.5-34.5); MEAN CORPUSCULAR HGB CONC 32.2 g/dL (33.2-36.2); MEAN CORPUSCULAR VOLUME 95.4 fL (81-97); MEAN PLATELET VOLUME 8.6 fL (7.4-10.4); MONOCYTES # (AUTO) 0.93 x10^3/uL (0.2-0.8); MONOCYTES % (AUTO) 10 % (2-9); NEUTROPHILS # (AUTO) 7.25 x10^3/uL (1.8-6.8); NEUTROPHILS % (AUTO) 76 % (42-75); PLATELET COUNT 224 x10^3/uL (130-400); RED BLOOD COUNT 3.33 x10^6/uL (4.38-5.82); RED CELL DISTRIBUTION WIDTH 13.2 % (9.4-14.8)
== END 2019-11-28 11:18 | disposition home or self-care (01) ==
LOC: ED 07:58
DX: S91.211A Laceration without foreign body of right great toe with damage to nail, initial encounter (principal); D63.8 Anemia in other chronic diseases classified elsewhere; I10 Essential (primary) hypertension; E11.9 Type 2 diabetes mellitus without complications; E78.5 Hyperlipidemia, unspecified; Z86.73 Personal history of transient ischemic attack (TIA), and cerebral infarction without residual deficits; X58.XXXA Exposure to other specified factors, initial encounter; Y93.89 Activity, other specified; Y92.098 Other place in other non-institutional residence as the place of occurrence of the external cause; Y99.8 Other external cause status
CPT/HCPCS: 36415; 85025; 99283

== ENCOUNTER → 2019-12-10 | Outpatient (CLI) | payer MEDICARE ==
[2019-12-10 17:38] LABS: BASOPHILS # (AUTO) 0.01 x10^3/uL (0-0.1); BASOPHILS % (AUTO) 0 % (0-1); EOSINOPHILS # (AUTO) 0.16 x10^3/uL (0-0.4); EOSINOPHILS % (AUTO) 2 % (1-7); LYMPHOCYTES # (AUTO) 1.29 x10^3/uL (1-3.4); LYMPHOCYTES % (AUTO) 20 % (22-44); MD NO; MEAN CORPUSCULAR HEMOGLOBIN 31.7 pg (27.5-34.5); MEAN CORPUSCULAR HGB CONC 33.2 g/dL (33.2-36.2); MEAN CORPUSCULAR VOLUME 95.7 fL (81-97); MEAN PLATELET VOLUME 8.5 fL (7.4-10.4); MONOCYTES # (AUTO) 0.86 x10^3/uL (0.2-0.8); MONOCYTES % (AUTO) 13 % (2-9); NEUTROPHILS # (AUTO) 4.27 x10^3/uL (1.8-6.8); NEUTROPHILS % (AUTO) 65 % (42-75); PLATELET COUNT 242 x10^3/uL (130-400); RED BLOOD COUNT 2.87 x10^6/uL (4.38-5.82); RED CELL DISTRIBUTION WIDTH 14.2 % (9.4-14.8)
[2019-12-10 17:42] LABS: RED BLOOD COUNT 2.87 x10^6/uL (4.38-5.82)
[2019-12-10 17:55] LABS: ABSOLUTE RETICS # 0.116 x10^6/uL (0.5-1.5); RETICULOCYTE COUNT % 4.05 % (0.5-1.5)
[2019-12-10 18:13] LABS: FOLATE LEVEL 10.5 ng/mL (3.1-17.5)
== END | disposition home or self-care (01) ==
LOC: LAB 17:03
PROVIDERS: ATTEND Student in an Organized Health Care Education/Training Program
DX: D64.9 Anemia, unspecified (principal); Z20.1 Contact with and (suspected) exposure to tuberculosis
CPT/HCPCS: 36415; 82607; 82746; 83010; 83615; 85025; 85045; 86480